=== PATIENT | male | born 1995 | race African-American/Black ===

== ENCOUNTER 2018-05-05 04:40 | Emergency (ER) | payer OTHER ==
[~2018-05-05] VITALS: Ht 188 cm; Wt 101.6 kg
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
--- NOTE | 2018-05-05 05:07 | NUR ---
PT TO XRAY VIA STRETCHER.
--- NOTE | 2018-05-05 05:32 | NUR ---
PT BACK FROM CT.
--- NOTE | 2018-05-05 05:49 | NUR ---
XRAY AT BEDSIDE.
[2018-05-05] MEDS ORDERED: HYDROCODONE/APAP 5/325MG 1 EACH TABLET PO ONE (06:30)
[2018-05-05] MEDS ORDERED: HYDROCODONE/APAP 5/325MG 1 EACH TABLET ONE (06:30)
[2018-05-05] MEDS ORDERED: AMOX/CLAVULANATE 875 MG TABLET PO ONE (06:30)
[2018-05-05] MEDS ORDERED: AMOX/CLAVULANATE 875 MG TABLET ONE (06:30)
[2018-05-05 06:35] VITALS: BP 137/88
--- NOTE | 2018-05-05 06:36 | NUR ---
Patient discharged with parents to home in stable condition. Written and verbal after care instructions given, patient instructed not to drive. Patient verbalizes understanding of instruction. Patient is awake and alert to self, day, and place.
== END 2018-05-05 06:37 | disposition home or self-care (01) ==
LOC: ER 04:42
DX: S02.31XA Fracture of orbital floor, right side, initial encounter for closed fracture (principal); S02.40CA Maxillary fracture, right side, initial encounter for closed fracture; S09.8XXA Other specified injuries of head, initial encounter; Y04.2XXA Assault by strike against or bumped into by another person, initial encounter; Y93.89 Activity, other specified; Y92.830 Public park as the place of occurrence of the external cause; Y99.8 Other external cause status
CPT/HCPCS: 70450; 70486; 70490; 71045; 99284; A4606; Z7610